=== PATIENT | male | born 1965 | race Caucasian/White ===

== ENCOUNTER → 2019-05-04 | Outpatient (CLI) | payer OTHER ==
[2019-05-04 07:47] LABS: HEMATOCRIT 43.2 % (42.0-52.0); HEMOGLOBIN 14.5 gm/dL (14.0-18.0); MCH 30.5 pg (26.0-34.0); MCHC 33.6 g/dL (28.0-37.0); MCV 90.9 fL (80.0-100.0); RBC 4.76 mil/uL (4.50-6.00); RDW 13.1 % (10.5-14.5); WBC 2.4 thou/uL (4.0-11.0)
[2019-05-04 08:05] LABS: INR 1.2; PROTIME 11.8 Seconds (9.3-11.4)
[2019-05-04 08:11] LABS: CALCIUM 10.5 mg/dL (8.5-10.1); POTASSIUM 4.5 mmol/L (3.5-5.1)
[2019-05-04 09:02] VITALS: BP 124/79
[2019-05-04 09:07] VITALS: BP 124/88
[2019-05-04 09:15] VITALS: BP 120/79
[2019-05-04 09:20] VITALS: BP 118/81
[2019-05-04 11:15] VITALS: BP 136/78
== END | disposition home or self-care (01) ==
LOC: ULTRA 07:12
PROVIDERS: Specialist
DX: R94.5 Abnormal results of liver function studies (principal); Z79.899 Other long term (current) drug therapy; Z88.8 Allergy status to other drugs, medicaments and biological substances